=== PATIENT | male | born 1980 | race American Indian/Alaskan Native ===

== ENCOUNTER 2016-10-07 20:00 | Emergency (ER) | payer SELFPAY ==
[2016-10-07] MEDS ORDERED: PROVENTIL IH ONE (20:40)
--- NOTE | 2016-10-08 01:45 | Emergency Department Report ---
HPI - General Chief Complaint: Adult Asthma Time Seen by Provider: 10/08/16 01:34 - HPI HPI: His is a 35-year-old -[place] male presents to the emergency department from home with complaint of a probable asthma exacerbation. The patient some the began having some shortness breath, wheezing and a dry cough. He thinks it is due to the humidity and recent rain. He has a history of asthma but is out of his albuterol inhaler and nebulized treatments. He is a tobacco smoker. He denies any chest pain, fever, nausea, vomiting, back pain or diaphoresis. No recent travel or sick contacts at home. He does not currently have a primary care physician. ED Past Medical Hx - Past Medical History Hx Asthma: Yes - Surgical History Past Surgical History?: No - Social History Smoking Status: Current Every Day Smoker Substance Use Type: Alcohol - Medications Home Medications: Home Medications Medication Instructions Recorded Confirmed Last Taken Type ALBUTEROL Inhaler [ProAir HFA 2 puff IH QID PRN #1 inhalation 10/08/16 Unknown Rx Inhaler] ALBUTEROL NEB's [Proventil 0.083% 2.5 mg IH TID PRN #1 box 10/08/16 Unknown Rx NEBS] predniSONE [Deltasone] 20 mg PO QDAY #5 tab 10/08/16 Unknown Rx ED Review of Systems ROS: Stated complaint: ASTHMA Other details as noted in HPI Comment: All other systems reviewed and negative Constitutional: denies: chills, fever Eyes: denies: eye pain, eye discharge, vision change ENT: denies: ear pain, throat pain Respiratory: cough, shortness of breath, wheezing Cardiovascular: denies: chest pain, palpitations Gastrointestinal: denies: abdominal pain, nausea, diarrhea Genitourinary: denies: urgency, dysuria Musculoskeletal: denies: back pain, joint swelling, arthralgia Skin: denies: rash, lesions Neurological: denies: headache, weakness, paresthesias Physical Exam - Physical Exam Vital Signs: Vital Signs 10/07/16 10/07/16 10/08/16 20:34 21:20 01:12 Temperature 98.2 F 98.2 F Pulse Rate 84 75 Pulse Rate [ 90 Bilateral Throughout] Respiratory 20 16 Rate Respiratory 18 Rate [Bilateral Throughout] Blood Pressure 155/108 Blood Pressure 143/101 [Left] O2 Sat by Pulse 98 99 Oximetry Physical Exam: GENERAL: The patient is well-developed well-nourished. HEENT: Normocephalic. Atraumatic. Extraocular motions are intact. Patient has moist mucous membranes. Pupils equal reactive to light bilaterally. NECK: Supple. Trachea is midline. CHEST/LUNGS: Mild wheezing that the chest. Mild tachypnea but no accessory muscle use. A dry cough heard during examination. There is no respiratory distress noted. HEART/CARDIOVASCULAR: Regular. There is no tachycardia. There is no gallop rub or murmur. ABDOMEN: Abdomen is soft, nontender. Patient has normal bowel sounds. There is no abdominal distention. SKIN: Skin is warm and dry. NEURO: The patient is awake, alert, and oriented. The patient is cooperative. The patient has no focal neurologic deficits. The patient has normal speech. MUSCULOSKELETAL: There is no tenderness or deformity. There is no limitation range of motion. There is no evidence of acute injury. ED Course Vital Signs 10/07/16 10/07/16 10/08/16 20:34 21:20 01:12 Temperature 98.2 F 98.2 F Pulse Rate 84 75 Pulse Rate [ 90 Bilateral Throughout] Respiratory 20 16 Rate Respiratory 18 Rate [Bilateral Throughout] Blood Pressure 155/108 Blood Pressure 143/101 [Left] O2 Sat by Pulse 98 99 Oximetry ED Medical Decision Making - Radiology Data Radiology results: image reviewed interpreted by me: Chest x-ray did not show any acute process. Heart is normal shape and size. No effusions. No pneumothorax. No signs of pneumonia seen. - Medical Decision Making 35-year-old male with a history of asthma presents with some bronchospasm and asthma-like symptoms. Vital signs stable throughout his ED course. No respiratory distress. There is mild wheezing. He was given a dose of steroids and a breathing treatment and upon reevaluation is feeling improved. Chest x- ray does not show any acute process. The patient will be given a course of steroids and a refill of his albuterol inhaler and nebulized treatments. He will be given referrals for primary care clinics. We discussed smoking cessation. - Differential Diagnosis asthma, bronchitis, pneumonia, viral syndrome Critical Care Time: No Critical care attestation.: If time is entered above; I have spent that time in minutes in the direct care of this critically ill patient, excluding procedure time. ED Disposition Clinical Impression: Asthma exacerbation, Bronchospasm Disposition: DC- TO HOME OR SELFCARE Is pt being admited?: No Condition: Stable Instructions: Asthma (ED) Additional Instructions: Please quit smoking. Follow up with a primary care physician in the next few days if possible. Return to the emergency department with any worsening of your symptoms or any acute distress. Prescriptions: ALBUTEROL Inhaler [ProAir HFA Inhaler] 2 puff IH QID PRN #1 inhalation PRN Reason: Shortness Of Breath ALBUTEROL NEB's [Proventil 0.083% NEBS] 2.5 mg IH TID PRN #1 box PRN Reason: Wheezing predniSONE [Deltasone] 20 mg PO QDAY #5 tab Referrals: PRIMARY CARE,MD [Primary Care Provider] - 3-5 Days [facility] [Outside] - 3-5 Days [facility] [Outside] - 3-5 Days [facility] [Outside] - 3-5 Days Forms: Work/School Release Form(ED) Time of Disposition: 02:56
[2016-10-08] MEDS: PROVENTIL IH ONE (01:51)
[2016-10-08] MEDS: DELTASONE PO ONE (01:57)
[2016-10-08 03:07] VITALS: BP 135/85
--- NOTE | 2016-10-08 07:39 | XRay Report ---
ROUTINE CHEST, TWO VIEWS: HISTORY: Shortness of. The trachea, heart, mediastinal contour, lung vargas and bony thorax are unremarkable. IMPRESSION: Unremarkable chest x-ray.
== END 2016-10-08 03:06 | disposition home or self-care (01) ==
LOC: ED 20:00
DX: J45.901 Unspecified asthma with (acute) exacerbation (principal); F17.200 Nicotine dependence, unspecified, uncomplicated
CPT/HCPCS: 71020; 94640; 99283; J7512